=== PATIENT | male | born 1940 | race Caucasian/White ===

== ENCOUNTER 2025-09-09 12:03 | Emergency (ER) | payer MEDICARE, BC ==
[2025-09-09 12:25] LABS: BASOPHILS ABSOLUTE AUTO 0.04 10^3/uL (0.00-0.50); BASOPHILS PERCENT AUTO 0.5 % (0-1); EOSINOPHILS ABSOLUTE AUTO 0.13 10^3/uL (0.00-1.50); EOSINOPHILS PERCENT AUTO 1.5 % (0-6); IMMATURE GRAN ABSOLUTE AUTO 0.14 10^3/uL (0.00-0.49); IMMATURE GRAN PERCENT AUTO 1.6 % (0.0-4.9); LYMPHOCYTES ABSOLUTE AUTO 1.09 10^3/uL (0.60-5.00); LYMPHOCYTES PERCENT AUTO 12.4 % (24-44); MONOCYTES ABSOLUTE AUTO 0.74 10^3/uL (0.00-1.50); MONOCYTES PERCENT AUTO 8.4 % (0-10); NEUTROPHILS ABSOLUTE AUTO 6.64 x10^3/uL (1.80-8.00); NEUTROPHILS PERCENT AUTO 75.6 % (41-71); PLATELET COUNT,PLT 233 10^3/uL (150-400); RED BLOOD CELL COUNT 4.40 x10^6/uL (4.50-6.00); WHITE BLOOD CELL COUNT,WBC 8.8 10^3/uL (4.0-11.0)
[2025-09-09] MEDS: Ondansetron 4 MG/2 ML SDV IVPUSH ONE (12:31)
[2025-09-09 12:42] LABS: ALANINE AMINOTRANSFERASE,ALT 6 U/L (12-78); ASPARTATE AMNIOTRANSFERASE,AST 9 U/L (15-37); BILIRUBIN TOTAL 0.9 mg/dL (0.0-1.0); BLOOD UREA NITROGEN,BUN 14 mg/dL (7-18); CARBON DIOXIDE,CO2 28 mmol/L (21-32); CHLORIDE,CL 104 mEq/L (98-106); CREATINE KINASE,CK 30 U/L (35-232); CREATININE 1.1 mg/dL (0.7-1.3); EST CRCL DRUG DOSING (CG) 57.08 mL/min; GLUCOSE RANDOM 140 mg/dL (75-99); POTASSIUM,K 3.8 mEq/L (3.5-5.0); PROTEIN TOTAL,TP 6.2 g/dL (6.4-8.2); SODIUM,NA 141 mEq/L (136-145)
[2025-09-09 12:49] LABS: ESTIMATED GFR 66 mL/min (>=60)
[2025-09-09 14:06] LABS: APPEARANCE,URINE CLEAR (CLEAR); GLUCOSE,URINE NEGATIVE (NEGATIVE); OCCULT BLOOD,URINE MODERATE (NEGATIVE)
[2025-09-09 14:14] LABS: EPITHELIAL CELLS,URINE NOT SEEN /HPF (NOT SEEN)
[2025-09-09] MEDS: Take Home: Ondansetron 4 MG Tab.DIS, 5 Tab Pack PO ONE (14:47)
== END 2025-09-09 15:05 | disposition home or self-care (01) ==
LOC: CC.ED 12:03
DX: R11.2 Nausea with vomiting, unspecified (principal); I10 Essential (primary) hypertension; I48.91 Unspecified atrial fibrillation; E78.00 Pure hypercholesterolemia, unspecified
CPT/HCPCS: 36415; 71045; 80053; 81001; 82550; 83605; 83735; 84484; 85025; 85730; 86140; 87040; 87086; 93005; 93010; 96374; 99284; 99284-25; J2405; Q0162